=== PATIENT | male | born 1965 ===

== ENCOUNTER → 2018-07-12 21:43 | Outpatient (REF) | payer OTHER, SELFPAY ==
[2018-07-12 22:34] LABS: Add Manual Diff / Slide Review NO; Basophils Percent Auto 0.7 % (0-2); Eosinophils Percent Auto 2.5 % (2-4); Hematocrit 42.7 % (41-53); Hemoglobin 14.5 g/dL (13.5-17.5); Lymphocytes Percent Auto 23.7 % (25-40); Mean Corpuscular HGB Conc 33.9 % (30-36); Mean Corpuscular Hemoglobin 32.2 PG (26-34); Mean Corpuscular Volume 94.8 fL (80-100); Monocytes Percent Auto 8.3 % (3-14); Neutrophils Absolute Auto 3900 /uL (3000-5900); Neutrophils Percent Auto 64.8 % (50-75); Platelet Count 226 X10^3/uL (150-400); Red Blood Cell Count 4.51 X10^6/uL (4.5-5.9); Red Cell Distribution Width 13.6 % (11.6-14.8)
[2018-07-12 23:03] LABS: Erythrocyte Sedimentation Rate 11 MM/HR (0-15)
[2018-07-12 23:05] LABS: Vitamin D 25 Hydroxy (D3) 17.1 ng/mL (30.0-100.0)
[2018-07-12 23:17] LABS: Thyroid Stimulating Hormone 0.89 uIU/mL (0.47-4.68)
[2018-07-12 23:37] LABS: Alanine Aminotransferase 59 IU/L (21-72); Albumin 4.2 g/dL (3.5-5.0); Albumin Globulin Ratio 1.4 (1.0-2.8); Alkaline Phosphatase 63 U/L (38-126); Aspartate Aminotransferase 35 IU/L (17-59); BUN Creatinine Ratio 23.3 (6-22); Bilirubin Total 0.6 mg/dL (0.2-1.3); Blood Urea Nitrogen 21 mg/dL (9-20); Calcium 9.5 mg/dL (8.4-10.2); Carbon Dioxide 28 mmol/L (22-32); Chloride 104 mmol/L (98-107); Cholesterol 233 mg/dL (140-199); Estimated Glomerular Filt Rate > 60.0 mL/min (>60); Globulin 2.9 g/dL (1.7-4.1); Glucose 90 mg/dL (70-100); HDL Cholesterol 67 mg/dL (40-60); HEMOLYSIS 17 (0-50); LDL Cholesterol Calculated 148 mg/dL (<100); Potassium 4.5 mmol/L (3.4-5.1); Sodium 144 mmol/L (137-145); Total Protein 7.1 g/dL (6.3-8.2); Triglycerides 89 mg/dL (35-150)
[2018-07-12 23:56] LABS: Hemoglobin A1C% w Est Avg Glu 5.4 % (4.0-6.0)
[2018-07-14 13:45] LABS: Complement C3 117 mg/dL (82-185)
[2018-07-15 13:43] LABS: Complement Total CH50 > 60 U/mL (31-60)
[2018-07-15 19:02] LABS: ANA Screen, IFA Negative (Negative)
[2018-07-17 19:34] LABS: ANCA Screen Negative (Negative)
== END ==
LOC: LAB 21:43
PROVIDERS: Visit Provider Family Medicine
DX: Z00.00 Encounter for general adult medical examination without abnormal findings (principal); Z12.5 Encounter for screening for malignant neoplasm of prostate; Z13.1 Encounter for screening for diabetes mellitus; Z13.220 Encounter for screening for lipoid disorders; L95.9 Vasculitis limited to the skin, unspecified
CPT/HCPCS: 36415; 80053; 80061; 82306; 83036; 84153; 84443; 85025; 85651; 86021; 86038; 86160; 86162

== ENCOUNTER → 2018-08-22 21:17 | Outpatient (REF) | payer OTHER, SELFPAY | LOC: LAB 21:17 | PROVIDERS: Visit Provider Family Medicine | DX: J02.9 Acute pharyngitis, unspecified (principal) | CPT/HCPCS: 87070; 87077; 87147 ==